=== PATIENT | female | born 1960 | race Caucasian/White ===

== ENCOUNTER 2020-10-13 10:27 | Emergency (ER) | payer OTHER ==
--- OUTSIDE RECORDS SUMMARY | 2020-10-13 10:29 | XMS REPORT | Continuity of Care Document ---
:1960 [facility] t Address [address] [place] [address] Care Team Providers Name Role Phone Nathan JACOB Attending Clinician Unavailable Lab, Enrique Pob I Attending Clinician Unavailable Anthony JACOB, L Attending Clinician Unavailable Corina Brewster Attending Clinician Alex Bailey MD Attending Clinician Alex Bailey MD Admitting Clinician Problems This patient has no known problems. Allergies, Adverse Reactions, Alerts This patient has no known allergies or adverse reactions. Medications This patient has no known medications. Procedures This patient has no known procedures. Encounters Start End Encounter Admission Attending Care Care Encounter Source Date/Time Date/Time Type Type Clinicians Facility Department ID 2020-01-21 2020-01-21 Letter ERON Evans [id number] 00:00:00 00:00:00 (Out) Emi PIERCE [id number] [facility] [id number] 2020-01-21 2020-01-21 Telephone ERON Evans [id number] 00:00:00 00:00:00 Emi PIERCE [id number] [id number] 2020-01-16 2020-01-16 Embedded Processor Lab, [facility] [id number] 08:50:29 09:00:29 Visit Enrique Jara [facility] [id number] [place] [id number] [facility] [phone] [address] 2019-10-28 2019-10-28 Transition Dayana Cruz [id number] 00:00:00 00:00:00 of Care Sharon Manzo Haley [id number] [place] [id number] 2019-10-23 2019-10-24 [facility] Amber Miko Arriaga [facility] [id number] 08:54:20 19:46:00 Encounter Casandra Conway [facility] [id number] 10 [place] [id number] [place] [phone] [place] [address] ([facility]) Results This patient has no known results.
--- NOTE | 2020-10-13 11:41 | RAD REPORT ---
EXAM DESCRIPTION: CT - Head Brain Wo Cont - 10/13/2020 11:26 am CLINICAL HISTORY: dizziness COMPARISON: None. TECHNIQUE: Computed axial tomography of the head was obtained. IV contrast was not requested. All CT scans are performed using dose optimization technique as appropriate and may include automated exposure control or mA/KV adjustment according to patient size. FINDINGS: An intracranial bleed is not seen . The ventricles are normal in caliber. No extra-axial fluid collection is noted. Fluid within the sinuses/ mastoids is not seen. IMPRESSION: No acute intracranial abnormality is seen. If patient's symptoms persist MRI of the bra in would be recommended.
[2020-10-13] MEDS ORDERED: ONDANSETRON 4 MG/2 ML VIAL ONE (12:04)
[2020-10-13] MEDS ORDERED: NA CHLORIDE 0.9% 1,000 ML ONE (12:04)
[2020-10-13] MEDS ORDERED: MECLIZINE HCL 12.5 MG TAB ONE ×2 (12:04→12:11)
[2020-10-13 12:12] LABS: Bilirubin Direct 0.2 mg/dL (0-0.2); Bilirubin Total 0.7 mg/dL (0.2-1.0); Magnesium 2.4 mg/dL (1.8-2.4); Potassium 4.4 mmol/L (3.5-5.1); Protein, Total 7.9 g/dL (6.4-8.2)
[2020-10-13 12:24] LABS: Absolute Lymphocytes (CBC) 1.2 K/uL (0.7-4.9); Hematocrit 40.3 % (36.0-45.0); Lymphocytes % 20.3 % (15.3-44.8); MPV 8.8 fL (7.6-11.3)
[2020-10-13 12:29] LABS: Protime INR 2.35
--- NOTE | 2020-10-13 13:42 | EDPHYS ---
Physician Documentation [facility] Name: Gracy Norton Age: 59 yrs Sex: Female : 1960 Arrival Date: 10/13/2020 Time: 10:31 Bed 18 Private MD: ED Physician Blake Pappas HPI: 10/13 17:43 This 59 yrs old Female presents to ER via Ambulatory with complaints of kb Dizziness, High Blood Pressure. 17:43 The patient presents with dizziness. Onset: The symptoms/episode began/occurred 7 kb day(s) ago. Context: occurred at home, just prior to the episode the patient experienced no apparent symptoms. Modifying factors: The symptoms are alleviated by nothing, the symptoms are aggravated by changing position. Associated signs and symptoms: Pertinent positives: nausea. Severity of symptoms: At their worst the symptoms were moderate in the emergency department the symptoms are unchanged. Patient's baseline: Neuro: alert and fully oriented, Motor: no deficits, Ambulation: walks without assistance, Speech: normal. The patient has not experienced similar symptoms in the past. The patient has been recently seen by a physician: the patient's primary care provider, earlier today, with similar presenting complaints, and was sent to the [facility] Emergency Department for further evaluation. Pt reports dizziness that started on Monday. States it feels like the room spins when she changes positions and sometimes when she walks. Went to Dr Adams today and was told to come to ED for eval. . Historical: - Allergies: 10:54 No Known Allergies; iw - Home Meds: 10:54 lisinopril 10 mg Oral tab 1 tab once daily [Active]; pravastatin 40 mg oral tab 1 tab iw once daily [Active]; Xarelto 20 mg oral tab 1 tab once daily [Active]; - PMHx: 10:54 PE; Hypertension; Hyperlipidemia; iw - PSHx: 10:54 ; iw - Immunization history:: Adult Immunizations up to date. - Social history:: Smoking status: Patient denies any tobacco usage or history of. ROS: 17:42 Constitutional: Negative for fever, chills, and weight loss, Cardiovascular: Negative kb for chest pain, palpitations, and edema, Respiratory: Negative for shortness of breath, cough, wheezing, and pleuritic chest pain, MS/Extremity: Negative for injury and deformity, Skin: Negative for injury, rash, and discoloration. 17:42 Abdomen/GI: Positive for nausea. 17:42 Neuro: Positive for dizziness. Exam: 12:30 Constitutional: This is a well developed, well nourished patient who is awake, alert, kb and in no acute distress. Head/Face: Normocephalic, atraumatic. Eyes: Pupils equal round and reactive to light, extra-ocular motions intact. Lids and lashes normal. Conjunctiva and sclera are non-icteric and not injected. Cornea within normal limits. Periorbital areas with no swelling, redness, or edema. Chest/axilla: Normal chest wall appearance and motion. Nontender with no deformity. No lesions are appreciated. Cardiovascular: Regular rate and rhythm with a normal S1 and S2. No gallops, murmurs, or rubs. Normal PMI, no JVD. No pulse deficits. Respiratory: Lungs have equal breath sounds bilaterally, clear to auscultation and percussion. No rales, rhonchi or wheezes noted. No increased work of breathing, no retractions or nasal flaring. Abdomen/GI: Soft, non-tender, with normal bowel sounds. No distension or tympany. No guarding or rebound. No evidence of tenderness throughout. Skin: Warm, dry with normal turgor. Normal color with no rashes, no lesions, and no evidence of cellulitis. MS/ Extremity: Pulses equal, no cyanosis. Neurovascular intact. Full, normal range of motion. Neuro: Awake and alert, GCS 15, oriented to person, place, time, and situation. Cranial nerves II-XII grossly intact. Motor strength 5/5 in all extremities. Sensory grossly intact. Cerebellar exam normal. Normal gait. 12:30 ECG was reviewed by the Attending Physician. Vital Signs: 10:51 BP 149 / 81; Pulse 107; Resp 16; Temp 97.9; Pulse Ox 100% on R/A; Weight 79.83 kg; iw Height 5 ft. 4 in. (162.56 cm); 11:03 BP 113 / 68 Supine; Pulse 104; Resp 17 S; Pulse Ox 100% on R/A; ca1 11:05 BP 123 / 67 Sitting; Pulse 100; Resp 17 S; Pulse Ox 100% on R/A; ca1 11:07 BP 128 / 73 Standing; Pulse 107; Resp 15 S; Pulse Ox 100% on R/A; ca1 12:18 BP 127 / 62; Pulse 89; Resp 11; Pulse Ox 99% on R/A; mh5 13:25 BP 118 / 58; Pulse 88; Resp 16 S; Pulse Ox 99% on R/A; ca1 10:51 Body Mass Index 30.21 (79.83 kg, 162.56 cm) iw MDM: 10:58 Patient medically screened. kb 14:16 Data reviewed: vital signs, nurses notes. Data interpreted: Pulse oximetry: on room air kb is 99 %. Interpretation: normal. Counseling: I had a detailed discussion with the patient and/or guardian regarding: the historical points, exam findings, and any diagnostic results supporting the discharge/admit diagnosis, lab results, radiology results, the need for outpatient follow up, a family practitioner, to return to the emergency department if symptoms worsen or persist or if there are any questions or concerns that arise at home. ED course: Dizziness resolved after meclizine. Pt ambulated out of ED via steady gait, stating she felt much better and was no longer dizzy. 10/13 11:05 Order name: Basic Metabolic Panel kb 10/13 11:05 Order name: CBC with Diff kb 10/13 11:05 Order name: LFT's kb 10/13 11:05 Order name: Magnesium kb 10/13 11:05 Order name: NT PRO-BNP; Complete Time: 12:21 kb 10/13 11:05 Order name: PT-INR; Complete Time: 12:34 kb 10/13 11:05 Order name: CT Head Brain wo Cont; Complete Time: 11:42 kb 10/13 11:05 Order name: Basic Metabolic Panel; Complete Time: 12:21 EDMS 10/13 11:05 Order name: CBC with Automated Diff; Complete Time: 12:31 EDMS 10/13 11:05 Order name: Liver (Hepatic) Function; Complete Time: 12:21 EDMS 10/13 11:05 Order name: Magnesium; Complete Time: 12:21 EDMS 10/13 10:58 Order name: Orthostatics; Complete Time: 11:15 kb 10/13 11:05 Order name: EKG; Complete Time: 11:06 kb 10/13 11:05 Order name: Cardiac monitoring; Complete Time: 12:18 kb 10/13 11:05 Order name: EKG - Nurse/Tech; Complete Time: 12:18 kb 10/13 11:05 Order name: IV Saline Lock; Complete Time: 11:51 kb 10/13 11:05 Order name: Labs collected and sent; Complete Time: 11:51 kb 10/13 11:05 Order name: O2 Per Protocol; Complete Time: 11:51 kb 10/13 11:05 Order name: O2 Sat Monitoring; Complete Time: 11:51 kb EC:30 Rate is 92 beats/min. Rhythm is regular. QRS [place] is Normal. AR interval is normal at kb 128 msec. QRS interval is normal at 74 msec. QT interval is normal at 352 msec. Administered Medications: 11:57 Drug: NS 0.9% 1000 ml Route: IV; Rate: 1000 ml; Site: right antecubital; ca1 13:00 Follow up: Response: No adverse reaction; IV Status: Completed infusion; IV Intake: ca1 1000ml 11:57 Drug: Meclizine 25 mg Route: PO; ca1 13:00 Follow up: Response: No adverse reaction; Marked relief of symptoms ca1 11:58 Drug: Zofran (Ondansetron) 4 mg Route: IVP; Site: right antecubital; ca1 12:30 Follow up: Response: No adverse reaction; Nausea is decreased ca1 Disposition: 15:15 Co-signature as Attending Physician, Blake Pappas MD. rn Disposition: 10/13/20 13:41 Discharged to Home. Impression: Dizziness and giddiness. - Condition is Stable. - Discharge Instructions: Vertigo, Iwnq-da-Saqy, Dizziness, Nyrw-jj-Qlia. - Prescriptions for Meclizine 25 mg Oral Tablet - take 1 tablet by ORAL route every 8 hours As needed; 30 tablet. Zofran 4 mg Oral Tablet - take 1 tablet by ORAL route every 6 hours As needed; 20 tablet. - Medication Reconciliation Form, Thank You Letter, Antibiotic Education, Prescription Opioid Use form. - Follow up: Emergency Department; When: As needed; Reason: Worsening of condition. Follow up: Private Physician; When: 2 - 3 days; Reason: Recheck today's complaints, Continuance of care, Re-evaluation by your physician. Signatures: Dispatcher [facility] Vandana Torres FNP-C FNP-Ckb Diana August, RN RN iw Blake aPppas MD MD rn Acob, CECIL Reddy RN ca1 Corrections: (The following items were deleted from the chart) 14:17 13:41 10/13/2020 13:41 Discharged to Home. Impression: Dizziness and giddiness. ca1 Condition is Stable. Forms are Medication Reconciliation Form, Thank You Letter, Antibiotic Education, Prescription Opioid Use. Follow up: Emergency Department; When: As needed; Reason: Worsening of condition. Follow up: Private Physician; When: 2 - 3 days; Reason: Recheck today's complaints, Continuance of care, Re-evaluation by your physician. kb
--- NOTE | 2020-10-13 13:42 | ER ---
Nurse's Notes [facility] Name: Gracy Norton Age: 59 yrs Sex: Female : 1960 Arrival Date: 10/13/2020 Time: 10:31 Bed 18 Private MD: Diagnosis: Dizziness and giddiness Presentation: 10/13 10:51 Chief complaint: Patient states: was at Dr. Adams's office, has had low BP for days iw and was taken off her BP meds (lisinopril 10 mg ), has had high heart rate and is dizzy, started Monday. Coronavirus screen: At this time, the client does not indicate any symptoms associated with coronavirus-19. Ebola Screen: Patient negative for fever greater than or equal to 101.5 degrees Fahrenheit, and additional compatible Ebola Virus Disease symptoms Patient denies exposure to infectious person. Patient denies travel to an Ebola-affected area in the 21 days before illness onset. No symptoms or risks identified at this time. Initial Sepsis Screen: Does the patient meet any 2 criteria? No. Patient's initial sepsis screen is negative. Does the patient have a suspected source of infection? No. Patient's initial sepsis screen is negative. Risk Assessment: Do you want to hurt yourself or someone else? Patient reports no desire to harm self or others. Onset of symptoms was October 11, 2020. 10:51 Method Of Arrival: Ambulatory iw 10:51 Acuity: BUCK 3 iw Historical: - Allergies: 10:54 No Known Allergies; iw - Home Meds: 10:54 lisinopril 10 mg Oral tab 1 tab once daily [Active]; pravastatin 40 mg oral tab 1 tab iw once daily [Active]; Xarelto 20 mg oral tab 1 tab once daily [Active]; - PMHx: 10:54 PE; Hypertension; Hyperlipidemia; iw - PSHx: 10:54 ; iw - Immunization history:: Adult Immunizations up to date. - Social history:: Smoking status: Patient denies any tobacco usage or history of. Screenin:05 Abuse screen: Denies threats or abuse. Denies injuries from another. Nutritional ca1 screening: No deficits noted. Tuberculosis screening: No symptoms or risk factors identified. Fall Risk IV access (20 points). Assessment: 11:05 General: Appears in no apparent distress. comfortable, Behavior is calm, cooperative, ca1 appropriate for age. Pain: Complains of pain in forehead and left frontal area Pain began today. Neuro: Level of Consciousness is awake, alert, obeys commands, Oriented to person, place, time, situation, Reports dizziness, since a week ago headache in left frontal area, since today. Cardiovascular: Heart tones S1 S2 present Capillary refill < 3 seconds Patient's skin is warm and dry. Rhythm is sinus tachycardia. Respiratory: Airway is patent Respiratory effort is even, unlabored, Respiratory pattern is regular, symmetrical, Breath sounds are clear bilaterally. GI: Abdomen is flat, non-distended, Bowel sounds present X 4 quads. Abd is soft and non tender X 4 quads. : No signs and/or symptoms were reported regarding the genitourinary system. EENT: No signs and/or symptoms were reported regarding the EENT system. Derm: Skin is intact, is healthy with good turgor, Skin is pink, warm \T\ dry. Musculoskeletal: Circulation, motion, and sensation intact. Capillary refill < 3 seconds. 11:15 Reassessment: Orthostatics done. Pt reports dizziness with every position change that ca1 lasts approx 10 seconds. Able to complete and tolerate procedure. Notified provider. 12:10 Reassessment: No changes from previously documented assessment. Patient and/or family ca1 updated on plan of care and expected duration. Pain level reassessed. Patient is alert, oriented x 3, equal unlabored respirations, skin warm/dry/pink. 13:15 Reassessment: Patient appears in no apparent distress at this time. Patient and/or ca1 family updated on plan of care and expected duration. Pain level reassessed. Patient is alert, oriented x 3, equal unlabored respirations, skin warm/dry/pink. Patient states feeling better. Patient states symptoms have improved. 13:58 Reassessment: Patient appears in no apparent distress at this time. Patient is alert, ca1 oriented x 3, equal unlabored respirations, skin warm/dry/pink. Patient states feeling better. Patient states symptoms have improved. Vital Signs: 10:51 BP 149 / 81; Pulse 107; Resp 16; Temp 97.9; Pulse Ox 100% on R/A; Weight 79.83 kg; iw Height 5 ft. 4 in. (162.56 cm); 11:03 BP 113 / 68 Supine; Pulse 104; Resp 17 S; Pulse Ox 100% on R/A; ca1 11:05 BP 123 / 67 Sitting; Pulse 100; Resp 17 S; Pulse Ox 100% on R/A; ca1 11:07 BP 128 / 73 Standing; Pulse 107; Resp 15 S; Pulse Ox 100% on R/A; ca1 12:18 BP 127 / 62; Pulse 89; Resp 11; Pulse Ox 99% on R/A; mh5 13:25 BP 118 / 58; Pulse 88; Resp 16 S; Pulse Ox 99% on R/A; ca1 10:51 Body Mass Index 30.21 (79.83 kg, 162.56 cm) iw ED Course: 10:31 Patient arrived in ED. ds1 10:53 Triage completed. iw 10:54 Arm band placed on. iw 10:58 Vandana Damico FNP-C is [facility]. kb 10:58 Blake Pappas MD is Attending Physician. kb 11:02 Maureen Knight, CECIL is Primary Nurse. ca1 11:05 Patient has correct armband on for positive identification. Bed in low position. Call ca1 light in reach. Side rails up X2. cardiac monitor technician on. Pulse ox on. NIBP on. Warm blanket given. 11:26 CT Head Brain wo Cont In Process Unspecified. EDMS 11:42 Initial lab(s) drawn, by me, sent to lab. Inserted saline lock: 20 gauge in right ca1 antecubital area, using aseptic technique. Blood collected. 12:17 EKG done, by ED staff, reviewed by Vandana SOOD. 5 14:10 No provider procedures requiring assistance completed. IV discontinued, intact, ca1 bleeding controlled, No redness/swelling at site. Pressure dressing applied. Administered Medications: 11:57 Drug: NS 0.9% 1000 ml Route: IV; Rate: 1000 ml; Site: right antecubital; ca1 13:00 Follow up: Response: No adverse reaction; IV Status: Completed infusion; IV Intake: ca1 1000ml 11:57 Drug: Meclizine 25 mg Route: PO; ca1 13:00 Follow up: Response: No adverse reaction; Marked relief of symptoms ca1 11:58 Drug: Zofran (Ondansetron) 4 mg Route: IVP; Site: right antecubital; ca1 12:30 Follow up: Response: No adverse reaction; Nausea is decreased ca1 Intake: 13:00 IV: 1000ml; Total: 1000ml. ca1 Outcome: 13:41 Discharge ordered by MD. shipman 14:17 Discharged to home ambulatory. ca1 14:17 Condition: stable 14:17 Discharge instructions given to patient, Instructed on discharge instructions, follow up and referral plans. medication usage, Demonstrated understanding of instructions, follow-up care, medications, Prescriptions given X 2. 14:17 Patient left the ED. ca1 Signatures: Dispatcher [employer] EDMS Vandana Damico, COMMERCIAL CREDIT REVIEWER-C COMMERCIAL CREDIT REVIEWER-Ckb Iliana Nieto ds1 Diana August, Bonnie Mendoza RN 5 Maureen Knight RN RN ca1 Corrections: (The following items were deleted from the chart) 14:17 13:15 Reassessment: Patient appears in no apparent distress at this time. Patient ca1 and/or family updated on plan of care and expected duration. Pain level reassessed. Patient is alert, oriented x 3, equal unlabored respirations, skin warm/dry/pink. ca1 14:17 13:58 Reassessment: Patient appears in no apparent distress at this time. Patient is ca1 alert, oriented x 3, equal unlabored respirations, skin warm/dry/pink. ca1
[2020-10-13 14:31] VITALS: TEMP 97.9
[2020-10-13 14:36] VITALS: O2SAT 99
[2020-10-13 14:37] VITALS: BP 118/58
--- NOTE | 2020-10-14 22:29 | EKG ---
Test Date: 2020-10-13 Test Time: 12:07:46 Student Success Coach: VANESSA MEASUREMENT RESULTS: Intervals: Rate: 92 OK: 128 QRSD: 74 QT: 352 QTc: 435 [place]: P: 50 OK: 128 QRS: 23 T: 28 INTERPRETIVE STATEMENTS: Normal sinus rhythm Nonspecific ST and T wave abnormality Abnormal ECG No previous ECG available for comparison Electronically Signed On 10-14-20 22:25:43 MAMMOGRAPHY SUPERVISOR by Owen Dye
== END 2020-10-13 14:17 | disposition home or self-care (01) ==
LOC: ER 10:27
DX: R42 Dizziness and giddiness (principal); I10 Essential (primary) hypertension; E78.5 Hyperlipidemia, unspecified; Z86.711 Personal history of pulmonary embolism; Z79.01 Long term (current) use of anticoagulants
CPT/HCPCS: 96361; 93005; 85025; 80048; 36415; 83735; 85610; 80076; 83880; 70450; 96374; 99285; J7030; J2405